=== PATIENT | male | born 1980 | race Caucasian/White ===

== ENCOUNTER 2025-05-05 07:14 | Day surgery (SDC) | payer BC ==
[2025-05-05] MEDS ORDERED: Propofol 200 MG/20 ML SDV ONE (08:30)
== END 2025-05-05 09:41 | disposition home or self-care (01) ==
LOC: LB.SDS 07:14
PROVIDERS: ATTEND Surgery
DX: Z12.11 Encounter for screening for malignant neoplasm of colon (principal); D12.5 Benign neoplasm of sigmoid colon; Z79.899 Other long term (current) drug therapy
CPT/HCPCS: 88305; J2704; J7030